=== PATIENT | male | born 1975 | race Caucasian/White ===

== ENCOUNTER 2020-11-09 15:20 | Emergency (ER) | payer SELFPAY ==
[~2020-11-09] VITALS: Ht 182.9 cm; Wt 122.5 kg
[~2020-11-09 15:20] MED LIST: HYDACE5 PO
[2020-11-09] MEDS ORDERED: CODEINE-GUAIFE120 M1 PO (17:06)
[2020-11-09] MEDS ORDERED: ONDA4ODT MM (17:06)
[2020-11-09] MEDS ORDERED: ALBU90OI INH (17:06)
== END 2020-11-09 17:15 | disposition home or self-care (01) ==
LOC: ER 15:20
DX: U07.1 COVID-19 (principal); Z88.0 Allergy status to penicillin
CPT/HCPCS: 99283; A9270